=== PATIENT | male | born 2000 | race Caucasian/White ===

== ENCOUNTER → 2021-02-28 | Outpatient (REF) | LOC: LAB 16:14 | DX: R55 Syncope and collapse (principal) ==

== ENCOUNTER → 2021-03-05 | Outpatient (CLI) | payer BC | LOC: RAD 03-01 16:41 | DX: R55 Syncope and collapse (principal) ==

== ENCOUNTER → 2024-11-04 | Outpatient (CLI) | payer BC ==
--- NOTE | 2024-11-08 17:04 | NUR ---
ALYCE ARAGON DROPPED OFF HOLTER REPORT TO ARIANNA MOTA, AT DR PARDO'S OFFICE.
== END ==
LOC: AMSURD 12:12
DX: R55 Syncope and collapse (principal)